=== PATIENT | female | born 1990 | race Caucasian/White ===

== ENCOUNTER 2017-10-01 10:47 | Outpatient (CLI) | payer OTHER ==
[2016-10-24 12:38] VITALS: BP 108/71
== END 2017-10-01 10:50 ==
LOC: LABRHC 10:47
PROVIDERS: ATTEND Physician Assistant
DX: Z12.4 Encounter for screening for malignant neoplasm of cervix (principal)
CPT/HCPCS: 88148; G0143

== ENCOUNTER 2018-10-04 17:32 | Outpatient (CLI) | payer OTHER ==
[2016-10-24 12:38] VITALS: BP 108/71
== END 2018-10-04 17:33 ==
LOC: LABRHC 17:32
PROVIDERS: ATTEND Physician Assistant
DX: Z12.4 Encounter for screening for malignant neoplasm of cervix (principal); N89.8 Other specified noninflammatory disorders of vagina
CPT/HCPCS: 87210; 87481; 88148; G0143